=== PATIENT | male | born 1960 | race Caucasian/White ===

== ENCOUNTER 2017-12-28 22:16 | Emergency (ER) | payer MEDICAID ==
--- NOTE | 2017-12-28 22:26 | ED Physician Chart ---
ED Chief Complaint/HPI - Patient Information Date Seen:: 12/28/17 Time Seen:: 22:15 Chief Complaint:: chest pain History of Present Illness:: Patient's had a sharp pleuritic left-sided chest pain starting about 1 hour ago. He's had a recent cough productive of sputum the color of which he does not know. Temperature not taken. Patient given 324 mg of aspirin in the field. Patient was drinking alcohol earlier today. Historian:: Patient Family MD/PCP:: [employer] Review:: Nurse's Note Reviewed ED Review of Systems - Review of Systems General/Constitutional: No fever, No chills Skin: No skin lesions Head: No headache Eyes: No loss of vision ENT: No earache Neck: No neck pain Cardio Vascular: Chest pain Pulmonary: No SOB GI: No nausea, No vomiting, No diarrhea G/U: No dysuria Musculoskeletal: No bone or joint pain, No back pain, No muscle pain Endocrine: No polyuria Psychiatric: No prior psych history Hematopoietic: No bruising Allergic/Immuno: No urticaria, No angioedema Neurological: No syncope ED Past Medical History - Past Medical History Past Medical History: CAD, Other (history of 2 prior MIs) Family History: None Social History: Smoker, Alcohol, Homeless Surgical History: Appendectomy Psychiatricy History: None Medication: Reviewed Family Medical History - Family Member Mother History Unknown: Yes ED Physical Exam - Physical Examination General/Constitutional: No distress Other Gen/Cons comments:: Disheveled with slurred speech Head: Atraumatic Eyes: Lids, conjuctiva normal, PERRL Skin: Nl inspection, No rash, No skin lesions ENMT: External ears, nose nl Neck: No JVD, No nuchal rigidity Respiratory: Nl effort/Exclusion, Clear to Auscultation Cardio Vascular: RRR, No murmur, gallop, rubs Other Cardio Vascular comments:: Heart sounds faint GI: No organomegaly, No hernia, Nondistended, No mass/bruits Other GI comments:: Diffuse abdominal tenderness : No CVA tenderness Extremities: Normal digits & nails Neuro/Psych: No focal deficits ED Labs/Radiology/EKG Results - Lab Results Results: Abnormal Lab Results 12/28/17 23:10 WBC 5.6 RBC 3.45 L Hgb 11.4 L Hct 33.5 L MCV 97.0 MCH 32.9 H MCHC Differential 34.0 RDW 16.2 Plt Count 332 MPV 7.3 Add Manual Diff YES Abnormal Lab Results 12/28/17 23:10 WBC 5.6 RBC 3.45 L Hgb 11.4 L Hct 33.5 L MCV 97.0 MCH 32.9 H MCHC Differential 34.0 RDW 16.2 Plt Count 332 MPV 7.3 Add Manual Diff YES Abnormal Lab Results 12/28/17 12/28/17 12/28/17 22:28 23:10 23:10 WBC 5.6 RBC 3.45 L Hgb 11.4 L Hct 33.5 L MCV 97.0 MCH 32.9 H MCHC Differential 34.0 RDW 16.2 Plt Count 332 MPV 7.3 Add Manual Diff YES Sodium 135 L Potassium 3.6 Chloride 103 Carbon Dioxide 23.3 Anion Gap 12.3 BUN 6 L Creatinine 0.7 Est GFR ( Amer) > 60.0 Est GFR (Non-Af Amer) > 60.0 BUN/Creatinine Ratio 8.6 Glucose 119 H Calcium 8.6 Magnesium 1.7 L Troponin I 0.03 Lipase 90 H Ethyl Alcohol 356 H - Radiology Results Results: Chest x-ray showed status post sternotomy; no infiltrate - EKG Interpretations Rate & Rhythm: normal sinus rhythm with a rate is 73 [place]: normal Comments:: Possible old septal myocardial infarction ED Septic Shock - . Is Septic Shock (SBP<90, OR Lactate>4 mmol\L) present?: No ED Reassessment (Disposition) - Reassessment Reassessment:: At midnight patient noted to be sleeping Reassessment Condition:: Improved - Diagnosis Diagnosis:: Atypical chest pain; status post sternotomy; possible old septal myocardial infarction - Aftercare/Follow up Instructions Aftercare/Follow-Up Instructions:: Refer to Discharge Instructions - Patient Disposition Discharge/Transfer:: Home Condition at Disposition:: Stable
[2017-12-28 23:27] LABS: HEMATOCRIT 33.5 % (41.0-60); HEMOGLOBIN 11.4 gm/dL (12-16); MEAN CORPUSCULAR HEMOGLOBIN 32.9 pg (26.0-30.0); MEAN PLATELET VOLUME 7.3 fl; PLATELET COUNT 332 Th/cmm (150-400); RED BLOOD COUNT 3.45 Mil/cmm (4.30-5.70); RED CELL DISTRIBUTION WIDTH 16.2 % (11.5-20.0); WHITE BLOOD COUNT 5.6 Th/cmm (4.8-10.8)
[2017-12-28 23:40] LABS: ANION GAP 12.3 (7.0-16.0); BUN - UREA NITROGEN 6 mg/dL (7-25); CALCIUM SERUM 8.6 mg/dL (8.6-10.3); CARBON DIOXIDE 23.3 mEq/L (21.0-31.0); CHLORIDE 103 mEq/L (98-107); CREATININE - SERUM 0.7 mg/dL (0.7-1.3); GFR AFRICAN-AMERICAN > 60.0 ml/min (>90); GFR NON AFRICAN-AMERICAN > 60.0 ml/min; GLUCOSE 119 mg/dL (70-105); LIPASE 90 U/L (11-82); MAGNESIUM 1.7 mg/dL (1.9-2.7); POTASSIUM SERUM 3.6 mEq/L (3.5-5.1); SODIUM SERUM 135 mEq/L (136-145)
[2017-12-29 00:43] LABS: URINE SOURCE CLEAN C
[2017-12-29 00:46] LABS: URINE BILIRUBIN NEGATIVE (NEGATIVE); URINE BLOOD NEGATIVE (NEGATIVE); URINE GLUCOSE (UA) NEGATIVE (NEGATIVE); URINE KETONE NEGATIVE (NEGATIVE); URINE LEUKOCYTE ESTERASE NEGATIVE (NEGATIVE); URINE NITRATE NEGATIVE (NEGATIVE); URINE PH 5.5 (4.6 - 8.0); URINE PROTEIN NEGATIVE (NEGATIVE); URINE UROBILINOGEN 0.2 E.U./dL (0.2 - 1.0)
[2017-12-29 01:04] LABS: URINE CLARITY CLEAR (CLEAR); URINE COLOR STRAW; URINE MICROSCOPIC INDICATED? YES
[2017-12-29 01:05] LABS: URINE BACTERIA NONE SEEN /hpf (NONE SEEN); URINE EPITHELIAL CELLS OCCASIONAL /lpf (FEW); URINE RBC NONE SEEN /hpf (0-5); URINE WBC NONE SEEN /hpf (0-5)
[2017-12-29 01:06] LABS: AMPHETAMINE URINE NEGATIVE (NEGATIVE); BARBITURATES URINE NEGATIVE (NEGATIVE); BENZODIAZEPINES QUAL URINE NEGATIVE (NEGATIVE); CANNABINOID THC NEGATIVE (NEGATIVE); COCAINE METABOLITE QUAL URINE NEGATIVE (NEGATIVE); METHADONE URINE NEGATIVE (NEGATIVE); METHAMPHETAMINES QUAL URINE NEGATIVE (NEGATIVE); OPIATES (MORPHINE) QUAL. URINE NEGATIVE (NEGATIVE); PHENCYCLIDINE (PCP) URINE NEGATIVE (NEGATIVE); TRICYCLICS (TCA) QUAL. URINE NEGATIVE (NEGATIVE)
[2017-12-29 07:12] LABS: BAND NEUTROPHILE 3 % (0-10); BASOPHIL 0 % (0-3); EOSINOPHIL 2 % (0-5); LYMPHOCYTE 40 % (20-50); MONOCYTE 8 % (2-10); NEUTROPHILS 47 % (40-80)
--- NOTE | 2017-12-29 08:48 | Diagnostic Imaging Report ---
CHEST X-RAY: AP view INDICATION: pain COMPARISON: None FINDINGS: There is evidence of prior median sternotomy. The patient is mildly rotated. There is no focal consolidation or pleural effusions The heart is normal in size. Degenerative changes of the spine are noted. IMPRESSION: No focal consolidation identified. Evidence of prior median sternotomy.
== END 2017-12-29 06:27 | disposition home or self-care (01) ==
LOC: ER 22:16
DX: R07.89 Other chest pain (principal); R47.81 Slurred speech; R10.84 Generalized abdominal pain; I25.810 Atherosclerosis of coronary artery bypass graft(s) without angina pectoris; F17.200 Nicotine dependence, unspecified, uncomplicated; Z59.0 Homelessness; Z90.49 Acquired absence of other specified parts of digestive tract
CPT/HCPCS: 36415-UA; 71045-TC; 80048-TC; 80307; 80320-TC; 81001-TC; 83690-TC; 83735-TC; 84484-TC; 85007-TC; 85025-TC

== ENCOUNTER 2018-01-03 01:43 | Emergency (ER) | payer MEDICAID ==
--- NOTE | 2018-01-03 05:05 | ED Physician Chart ---
ED Chief Complaint/HPI - Patient Information Date Seen:: 01/03/18 Time Seen:: 05:05 Chief Complaint:: Bilateral knee pain History of Present Illness:: 57 yo homeless male was brought by ambulance from street to ER due to chronic bilateral knee pain and low back pain. Patient denied any fall or trauma. Patient drank alcohol this afternoon. Allergies:: Allergies Allergy/AdvReac Type Severity Reaction Status Date / Time No Known Allergies Allergy Verified 12/28/17 22:26 Vitals:: Vital Signs - 8 hr 01/03/18 01:45 Temp 97.8 F HR 73 RR 18 BP 107/65 O2 Sat % 100 ED Review of Systems - Review of Systems General/Constitutional: No fever, No chills Skin: No rash Head: Headache Eyes: No pain ENT: No nasal drainage Neck: No neck pain Cardio Vascular: Chest pain Pulmonary: No SOB GI: No nausea, No vomiting Musculoskeletal: Bone or joint pain, Back pain Neurological: No focal symptoms ED Past Medical History - Past Medical History Past Medical History: HTN Social History: Smoker, Alcohol, No Drug Use Surgical History: Appendectomy Family Medical History - Family Member Mother History Unknown: Yes ED Physical Exam - Physical Examination General/Constitutional: Awake Head: Atraumatic Eyes: PERRL Skin: No skin lesions ENMT: Nasal exam nl Neck: No nuchal rigidity Respiratory: Clear to Auscultation Cardio Vascular: RRR, No murmur, gallop, rubs, NL S1 S2 GI: No tenderness/rebounding/guarding Other Extremities comments:: Painful ROM of bilateral knee Neuro/Psych: No focal deficits ED Assessment - Assessment General Assessment: Chronic bilateral knee pain Chronic low back pain Assessment/Comments:: Patient asked for food. After eating a sandwich, patient slept comfortably overnight at ER without complaining pain. D/c home F/u PCP ED Septic Shock - . Is Septic Shock (SBP<90, OR Lactate>4 mmol\L) present?: No - <6hrs of presentation: Vital Signs: Vital Signs - 8 hr 01/03/18 01:45 Temp 97.8 F HR 73 RR 18 BP 107/65 O2 Sat % 100 ED Reassessment (Disposition) - Reassessment Reassessment Condition:: Improved - Patient Disposition Discharge/Transfer:: Home
== END 2018-01-03 06:35 | disposition home or self-care (01) ==
LOC: ER 01:43
DX: G89.29 Other chronic pain (principal); M25.562 Pain in left knee; M25.561 Pain in right knee; M54.5 Low back pain; I10 Essential (primary) hypertension; F17.200 Nicotine dependence, unspecified, uncomplicated; Z90.49 Acquired absence of other specified parts of digestive tract; Z59.0 Homelessness
CPT/HCPCS: Z7502